=== PATIENT | female | born 1950 | race Caucasian/White ===

== ENCOUNTER 2017-01-29 10:33 | Outpatient (CLI) | payer OTHER | END 2017-01-29 10:34 | disposition home or self-care (01) | DX: Z01.818 Encounter for other preprocedural examination (principal); Z01.812 Encounter for preprocedural laboratory examination; D64.9 Anemia, unspecified; R73.9 Hyperglycemia, unspecified ==

== ENCOUNTER 2017-02-09 13:37 | Outpatient (CLI) | payer MEDICARE, OTHER | END 2017-02-09 13:38 | disposition home or self-care (01) | DX: Z01.812 Encounter for preprocedural laboratory examination (principal); N39.0 Urinary tract infection, site not specified; R73.09 Other abnormal glucose ==

== ENCOUNTER 2017-05-17 16:18 | Outpatient (CLI) | payer MEDICARE, OTHER | END 2017-05-17 16:19 | disposition critical access hospital (66) | LOC: EMS 16:18 | PROVIDERS: ATTEND Surgery | DX: M25.552 Pain in left hip (principal); X50.0XXA Overexertion from strenuous movement or load, initial encounter; Y93.K1 Activity, walking an animal | CPT/HCPCS: A0425; A0427 ==

== ENCOUNTER 2017-05-17 16:35 | Day surgery (SDC) | payer MEDICARE, OTHER ==
[2017-05-17] MEDS ORDERED: HYDROmorphone 1 MG/ML SYRINGE ONE ×3 (16:49→18:01)
[2017-05-17] MEDS ORDERED: HYDROmorphone 1 MG/ML SYRINGE IVP STA ×3 (16:49→17:59)
--- NOTE | 2017-05-17 16:50 | ED Physician Documentation ---
PD HPI LOWER EXT INJURY - Stated complaint Stated Complaint: DISLOCATED HIP - Chief complaint Chief Complaint: Ext Problem - History obtained from History obtained from: Patient, Family - History of Present Illness PD HPI LOW EXT INJURY LOCATION: Right, Hip Type of injury: Twist Where injury occurred: Other (beach) Timing - onset: How many hours ago (1) Timing - duration: Hours (1) Timing - details: Abrupt onset Pain level max: 10 Pain level now: 8 Improved by: Rest, Ice, Immobilization Worsened by: Moving, Palpating Associated symptoms: No: Weakness, Numbness, Tingling, Swelling, Discolored Contributing factors: Prior ortho surgery (R hip THR). No: Anticoagulated Similar symptoms before: Diagnosis (R hip dislocation) - Additional information Additional information: last PO intake was at noon today. 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 : None HEENT: None Psych: Depression, Post traumatic stress disorder Musculoskeletal: Osteoarthritis Derm: None - Past Surgical History Past Surgical History: Yes General: Appendectomy, Colonoscopy, EGD Ortho: Hip replacement /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: Hysterectomy, Oophrectomy, Breast reduction - Present Medications Home Medications: Ambulatory Orders Medication Instructions Recorded Confirmed Amitriptyline [Elavil] 25 mg PO QPM 09/16/13 05/17/17 Atorvastatin Calcium [Lipitor] 60 mg PO QPM 09/16/13 05/17/17 Celecoxib [CeleBREX] 200 mg PO DAILY 09/16/13 05/17/17 Levothyroxine [Synthroid] 75 mcg PO QDAC 09/16/13 05/17/17 Metformin HCl [Glumetza] 500 mg PO BID 09/16/13 05/17/17 Omeprazole 20 mg PO BID 09/16/13 05/17/17 Tizanidine HCl 4 mg PO HS 09/16/13 05/17/17 Aspirin [Aspir 81] 81 mg PO DAILY 12/13/14 05/17/17 Ferrous Sulfate 650 mg PO DAILY 12/13/14 05/17/17 Losartan Potassium 25 mg PO DAILY 12/13/14 05/17/17 LORazepam [Ativan] 1 mg PO DAILY 05/27/15 05/17/17 - Allergies Allergies/Adverse Reactions: Allergies Allergy/AdvReac Type Severity Reaction Status Date / Time lisinopril AdvReac Respiratory Verified 05/17/17 16:46 - Social History Does the pt smoke?: No Smoking Status: Never smoker Does the pt drink ETOH?: No Does the pt have substance abuse?: Yes - Immunizations Immunizations are current?: Yes - POLST Patient has POLST: No PD ED PE NORMAL - Vitals Vital signs reviewed: Yes - General General: Alert and oriented X 3, No acute distress - HEENT HEENT: Moist mucous membranes, Other (anisocoria) - Neck Neck: Supple, no meningeal sign - Cardiac Cardiac: RRR, Strong equal pulses - Respiratory Respiratory: No respiratory distress, Clear bilaterally - Abdomen Abdomen: Soft, Non tender - Derm Derm: Warm and dry - Extremities Extremities: Other (TTP R hip. Unable to range the hip. NVI.) - Neuro Neuro: Alert and oriented X 3 - Psych Psych: Normal mood, Normal affect Results - Vitals Vitals: Vital Signs - 24 hr 05/17/17 05/17/17 05/17/17 16:36 17:29 17:39 Temperature 37 C Heart Rate 91 78 92 Respiratory 16 22 22 Rate Blood Pressure 155/96 H 192/93 H 181/90 H Blood Pressure [Brachial artery] O2 Saturation 100 99 100 05/17/17 05/17/17 05/17/17 17:47 17:52 17:58 Temperature Heart Rate 64 68 74 Respiratory 16 14 16 Rate Blood Pressure 186/78 H 166/88 H 174/97 H Blood Pressure [Brachial artery] O2 Saturation 98 100 100 05/17/17 05/17/17 05/17/17 18:09 18:35 18:56 Temperature Heart Rate 92 96 87 Respiratory 20 20 24 Rate Blood Pressure 174/88 H 180/87 H 162/85 H Blood Pressure [Brachial artery] O2 Saturation 100 100 100 05/17/17 05/17/17 05/17/17 19:12 20:03 20:10 Temperature Heart Rate 103 H Respiratory 24 Rate Blood Pressure 141/108 H Blood Pressure [Brachial artery] O2 Saturation 100 100 100 07/23/17 07/23/17 07/23/17 20:15 20:20 20:35 Temperature Heart Rate Respiratory Rate Blood Pressure Blood Pressure [Brachial artery] O2 Saturation 100 96 98 05/17/17 05/17/17 05/17/17 20:50 21:05 21:15 Temperature Heart Rate Respiratory Rate Blood Pressure Blood Pressure [Brachial artery] O2 Saturation 98 100 98 05/17/17 05/17/17 05/17/17 21:30 21:45 22:00 Temperature 36.8 C Heart Rate 114 H 111 H 111 H Respiratory 14 12 12 Rate Blood Pressure Blood Pressure 116/62 139/70 H 132/60 H [Brachial artery] O2 Saturation 97 91 L 92 05/17/17 22:31 Temperature 95 C H Heart Rate 107 H Respiratory 12 Rate Blood Pressure Blood Pressure 131/66 H [Brachial artery] O2 Saturation 96 Oxygen O2 Source [With Activity] Room air O2 Source [Without Activity] Room air O2 Source Nasal cannula Oxygen Flow Rate 2 - Rads (name of study) R hip xray Radiology: Prelim report reviewed, EMP read contemporaneously, See rad report ( Superiorly dislocated right total hip arthroplasty. Right proximal femur greater trochanter fracture fragment again noted. There is a new metal structure , suspect postsurgical at the right greater trochanter fracture fragment. ) R hip xray 2 Radiology: Prelim report reviewed, EMP read contemporaneously, See rad report ( Right total hip arthroplasty superior dislocation, unchanged. Right proximal femur greater trochanter fracture fragment, unchanged. No acute fractures are seen. 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 This is unable to be reduced in the emergency department. Therefore I consulted Dr. Amezquita, orthopedics, who will take the patient to the operating room for reduction. This is the second time that this hip has been dislocated and unable to be relocated in the ED, may need OR reduction in the future. This document was made in part using voice recognition software. While efforts are made to proofread this document, sound alike and grammatical errors may occur. Departure - Departure Disposition: ED Transfer to [facility] Clinical Impression: Hip dislocation, right Qualifiers: Encounter type: initial encounter Qualified Code(s): S73.004A - Unspecified dislocation of right hip, initial encounter Condition: Good Discharge Date/Time: 05/17/17 19:24
[2017-05-17] MEDS ORDERED: PROPOFOL 200 MG/20 ML VIAL IVP ONE ×3 (17:27→20:30)
--- NOTE | 2017-05-17 17:52 | XRAY Preliminary Report ---
Exam: XR Hip w/Pelvis 2-3V RT IMPRESSION: Superiorly dislocated right total hip arthroplasty. Right proximal femur greater trochant er fracture fragment again noted. There is a new metal structure, suspect postsurgical at the right g reater trochanter fracture fragment. [facility] SITE ID: [id number]
--- NOTE | 2017-05-17 17:55 | XRAY Report ---
EXAM: RIGHT HIP AND PELVIS RADIOGRAPHY EXAM DATE: 05/17/2017 04:50 PM. HISTORY: Fall, right hip pain. COMPARISONS: Pelvis 05/27/2015. TECHNIQUE: 1 view of the pelvis and 1 view of the hip. FINDINGS: Superiorly dislocated right total hip arthroplasty. Right proximal femur greater trochanter fracture fragment again noted. There is a new metal structure, suspect postsurgical at the right gre ater trochanter fracture fragment. Left total hip arthroplasty again noted. No left hip dislocation. IMPRESSION: Superiorly dislocated right total hip arthroplasty. Right proximal femur greater trochant er fracture fragment again noted. There is a new metal structure, suspect postsurgical at the right g reater trochanter fracture fragment. [facility] Referring Provider Line: [phone] SITE ID: [id number]
[2017-05-17] MEDS ORDERED: diazePAM INJ 5 MG/ML SYRINGE IVP STA (18:14)
[2017-05-17] MEDS ORDERED: PROPOFOL 200 MG/20 ML VIAL IVP STA (18:14)
[2017-05-17] MEDS ORDERED: diazePAM INJ 5 MG/ML SYRINGE ONE (18:16)
[2017-05-17] MEDS ORDERED: LORazepam 2 MG/ML SYRINGE IVP STA (18:52)
[2017-05-17] MEDS ORDERED: LORazepam 2 MG/ML SYRINGE ONE (18:52)
--- NOTE | 2017-05-17 19:05 | XRAY Preliminary Report ---
Exam: XR Hip w/Pelvis 1V RT IMPRESSION: Right total hip arthroplasty superior dislocation, unchanged. Right proximal femur greate r trochanter fracture fragment, unchanged. No acute fractures are seen. [facility] SITE ID: [id number]
--- NOTE | 2017-05-17 19:07 | XRAY Report ---
EXAM: RIGHT HIP AND PELVIS RADIOGRAPHY EXAM DATE: 05/17/2017 06:40 PM. HISTORY: Post reduction. COMPARISONS: Right hip 05/17/2017. TECHNIQUE: 1 view . FINDINGS: Bones: Right proximal femur greater trochanter fracture fragment is again noted. No new acute fractur es are seen. Joints: The right total hip arthroplasty continues to be superiorly dislocated. The left total hip ar throplasty appears unchanged. IMPRESSION: Right total hip arthroplasty superior dislocation, unchanged. Right proximal femur greate r trochanter fracture fragment, unchanged. No acute fractures are seen. G[facility] Referring Provider Line: [phone] SITE ID: [id number]
[2017-05-17] MEDS ORDERED: SODIUM CHLORIDE 0.9% 1,000 ML IV ONE ×2 (19:20)
--- NOTE | 2017-05-17 20:00 | XRAY Preliminary Report ---
Exam: XR Hip w/Pelvis 1V RT Impression: Satisfactory postreduction right hip prosthesis alignment. [facility] SITE ID: [id number]
--- NOTE | 2017-05-17 20:02 | XRAY Report ---
EXAM: RIGHT HIP RADIOGRAPHY EXAM DATE: 05/17/2017 07:49 PM. HISTORY: RIGHT HIP DISLOCATION. COMPARISONS: None. TECHNIQUE: 1 view of the pelvis. FINDINGS: Satisfactory postreduction alignment of right hip prosthesis. Chronic displaced greater trochanter fr acture fragment noted. Impression: Satisfactory postreduction right hip prosthesis alignment. [facility] Referring Provider Line: [phone] SITE ID: [id number]
[2017-05-17] MEDS ORDERED: LACTATED RINGERS 1,000 ML IV ONE (20:25)
[2017-05-17] MEDS ORDERED: MIDAZOLAM 2 MG/2 ML VIAL IVP ONE (20:30)
[2017-05-17] MEDS ORDERED: ROCURONIUM 50 MG/5 ML VIAL IVP ONE (20:30)
[2017-05-17] MEDS ORDERED: ONDANSETRON 4 MG/2 ML VIAL IVP ONE (20:30)
[2017-05-17] MEDS ORDERED: LIDOCAINE-MPF 2% 5 ML VIAL IM ONE (20:30)
[2017-05-17] MEDS ORDERED: fentaNYL 100 MCG/2 ML VIAL IVP ONE (20:30)
[2017-05-17] MEDS ORDERED: SUCCINYLCHOLINE 200 MG/10 ML VIAL IVP ONE (20:30)
[2017-05-17] MEDS ORDERED: NALOXONE 0.4 MG/ML VIAL IVP ONE (20:30)
--- NOTE | 2017-05-17 22:04 | OPERATIVE REPORT ---
DATE OF SURGERY: 05/17/2017 00:00:00 PREOPERATIVE DIAGNOSIS: Dislocated right total hip arthroplasty. POSTOPERATIVE DIAGNOSIS: Dislocated right total hip arthroplasty. NAME OF PROCEDURE: Closed reduction under anesthesia of right dislocated total arthroplasty. SURGEON: Shelli Amezquita MD. ANESTHESIA: General by Cassandra . INDICATIONS FOR SURGERY: The patient is a 67-year-old female with recurrent instability of a previous ly revised right total hip arthroplasty. The patient has had 4 or 5 episodes of subluxation and then finally today upon twisting had a dislocation of her right hip. She was seen in the emergency room af ter a failed closed reduction obtained under conscious sedation and recommendation was that she under go a closed reduction attempt under general anesthesia. FINDINGS AT SURGERY: The patient's hip was significantly shortened and externally rotated. Under anes thesia with longitudinal traction at 45 degrees of flexion and neutral rotation the patient did slide back into a located position without any dramatic clunk. It was more of a soft reduction. The patien t was then examined. Her hip was taken to 90 degrees of flexion and neutral rotation and the hip hakeem ined in place but she had exceedingly great range of motion at that position. She could be internally rotated to 90 degrees and externally rotated to 100 degrees without dislocating. When her limb was t hen dropped down to 0 degrees of flexion her foot was not able to be rolled in and out to this degree of rotation. Her limb length was half an inch longer than her other limb and was not constrained sig nificantly in abduction and there was no sense of instability other than under anesthesia. This is th e point where x-ray was taken and her hip was found to be concentrically reduced and the patient was awakened and taken to the recovery room in stable condition. The patient tolerated the procedure well and there were no complications. The only interesting aspect is that she had a very unusual hip exam after a very soft uneventful reduction. JOB #: [id number] EXT JOB #:[id number]
[2017-05-17 22:32] VITALS: BP 131/66
== END 2017-05-18 08:00 | disposition home or self-care (01) ==
LOC: SUPCPDRO 16:35 → ED 16:35 → MS 18:55 → SDS 18:55 → MS 20:00 → SDS 05-18 08:00
PROVIDERS: ATTEND Orthopaedic Surgery
PROC: 0SWRXJZ Revision of Synthetic Substitute in Right Hip Joint, Femoral Surface, External Approach (ICD-10-PCS; principal; 2017-05-17 19:07)
DX: T84.020A Dislocation of internal right hip prosthesis, initial encounter (principal); Y83.1 Surgical operation with implant of artificial internal device as the cause of abnormal reaction of the patient, or of later complication, without mention of misadventure at the time of the procedure; W50.2XXA Accidental twist by another person, initial encounter; Y92.832 Beach as the place of occurrence of the external cause; E11.9 Type 2 diabetes mellitus without complications; E03.9 Hypothyroidism, unspecified; Z79.82 Long term (current) use of aspirin; M19.90 Unspecified osteoarthritis, unspecified site; Z79.1 Long term (current) use of non-steroidal anti-inflammatories (NSAID); Z90.710 Acquired absence of both cervix and uterus; Z90.721 Acquired absence of ovaries, unilateral
CPT/HCPCS: 27266; 73501; 73502; 96374; 96375; 96376; 99284; J1170; J2060; J7120; 27265; 99152

== ENCOUNTER 2017-07-05 13:36 | Day surgery (SDC) | payer MEDICARE, OTHER ==
[2017-07-05] MEDS ORDERED: SODIUM CHLORIDE 0.9% 1,000 ML IV ONE (13:40)
[2017-07-05] MEDS ORDERED: HYDROmorphone 1 MG/ML SYRINGE IVP STA ×4 (13:40→17:18)
[2017-07-05] MEDS ORDERED: diazePAM INJ 5 MG/ML SYRINGE IVP STA (13:40)
--- NOTE | 2017-07-05 13:43 | ED Physician Documentation ---
PD HPI LOWER EXT INJURY - Stated complaint Stated Complaint: HIP PX - Chief complaint Chief Complaint: Ext Problem - History obtained from History obtained from: Patient - History of Present Illness PD HPI LOW EXT INJURY LOCATION: Other (She is status post right total hip replacement with a revision, she has had dislocations before and lifted up her leg to put it on the floor board of her car to take a picture just prior to arrival and it dislocated again and has severe pain in the right hip and is unable to range it. 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 Systems Ten Systems: 10 systems reviewed and negative Constitutional: reports: Reviewed and negative Ears: reports: Reviewed and negative Throat: reports: Reviewed and negative Cardiac: reports: Reviewed and negative PD PAST MEDICAL HISTORY - Past Medical History Cardiovascular: Hypertension, High cholesterol, Murmur Respiratory: None Neuro: None Endocrine/Autoimmune: Type 2 diabetes, HyPOthyroidism GI: None, GERD, Other 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 : None HEENT: None Psych: Depression, Post traumatic stress disorder Musculoskeletal: Osteoarthritis Derm: None - Past Surgical History Past Surgical History: Yes General: Appendectomy, Colonoscopy, EGD Ortho: Hip replacement /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: Hysterectomy, Oophrectomy, Breast reduction - Present Medications Home Medications: Ambulatory Orders Medication Instructions Recorded Confirmed Amitriptyline [Elavil] 25 mg PO QPM 09/16/13 05/17/17 Atorvastatin Calcium [Lipitor] 60 mg PO QPM 09/16/13 05/17/17 Celecoxib [CeleBREX] 200 mg PO DAILY 09/16/13 05/17/17 Levothyroxine [Synthroid] 75 mcg PO QDAC 09/16/13 05/17/17 Metformin HCl [Glumetza] 500 mg PO BID 09/16/13 05/17/17 Omeprazole 20 mg PO BID 09/16/13 05/17/17 Tizanidine HCl 4 mg PO HS 09/16/13 05/17/17 Aspirin [Aspir 81] 81 mg PO DAILY 12/13/14 05/17/17 Ferrous Sulfate 650 mg PO DAILY 12/13/14 05/17/17 Losartan Potassium 25 mg PO DAILY 12/13/14 05/17/17 LORazepam [Ativan] 1 mg PO DAILY 05/27/15 05/17/17 - Allergies Allergies/Adverse Reactions: Allergies Allergy/AdvReac Type Severity Reaction Status Date / Time lisinopril AdvReac Respiratory Verified 05/17/17 16:46 - Social History Does the pt smoke?: No Smoking Status: Never smoker Does the pt drink ETOH?: No Does the pt have substance abuse?: Yes - Family History Family history: reports: Non contributory - Immunizations Immunizations are current?: Yes - POLST Patient has POLST: No PD ED PE NORMAL - Vitals Vital signs reviewed: Yes - General General: Alert and oriented X 3, Other (In pain) - HEENT HEENT: PERRL, EOMI - Neck Neck: Supple, no meningeal sign, No bony TTP - Cardiac Cardiac: RRR, No murmur - Respiratory Respiratory: No respiratory distress, Clear bilaterally - Abdomen Abdomen: Normal bowel sounds, Soft, Non tender - Back Back: No CVA TTP, No spinal TTP - Derm Derm: Normal color, Warm and dry - Extremities Extremities: Other (Right hip is held in slight flexion and is shortened and severely in pain with inability to move it at all.) - Neuro Neuro: Alert and oriented X 3, Normal speech - Psych Psych: Normal mood, Normal affect Results - Vitals Vitals: Vital Signs - 24 hr 07/05/17 07/05/17 07/05/17 13:40 14:32 15:21 Temperature 36.6 C Heart Rate 103 H 88 88 Respiratory 16 14 20 Rate Blood Pressure 168/88 H 185/77 H O2 Saturation 99 100 96 Oxygen O2 Source [With Activity] Room air O2 Source [Without Activity] Room air O2 Source Nasal cannula Oxygen Flow Rate 2 - Rads (name of study) R hip Radiology: EMP read contemporaneously (anterior superior dislocation of prosthetic hip) Procedures - Reduction Body part reduced: Right, Hip, prosthetic Hip reduction technique: Allis - flex/pull/rotate, Fulcrum, [place] - prone flex Reduction aftercare: Unable to reduce. 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 She had not been n.p.o. very long when she got here so given her history of inability to reduce it in the ER I did talk with Dr. Amezquita but he requested a trial in the emergency department and she was administered divided doses of propofol and attempts at reduction by me were unsuccessful and Dr. Amezquita was called back and he will be in to see her. Departure - Departure Disposition: ED Transfer to [facility] Clinical Impression: Hip dislocation, right Qualifiers: Encounter type: initial encounter Qualified Code(s): S73.004A - Unspecified dislocation of right hip, initial encounter Condition: Stable
[2017-07-05] MEDS ORDERED: HYDROmorphone 1 MG/ML SYRINGE ONE ×4 (13:49→17:25)
[2017-07-05] MEDS ORDERED: diazePAM INJ 5 MG/ML SYRINGE ONE (13:49)
[2017-07-05] MEDS ORDERED: HYDROmorphone 1 MG/ML SYRINGE IM STA (13:59)
[2017-07-05] MEDS ORDERED: KETAMINE 500 MG/10 ML VIAL IVP STA ×2 (14:24→14:54)
[2017-07-05] MEDS ORDERED: KETAMINE 500 MG/10 ML VIAL ONE ×3 (14:30→17:38)
--- NOTE | 2017-07-05 15:34 | XRAY Preliminary Report ---
Exam: XR Hip w/Pelvis 2-3V RT IMPRESSION: Status post right total hip replacement with anterosuperior dislocation of the right femo ral prosthesis. [facility] SITE ID: [id number]
--- NOTE | 2017-07-05 15:37 | XRAY Report ---
EXAM: RIGHT HIP AND PELVIS RADIOGRAPHY EXAM DATE: 07/05/2017 02:27 PM. HISTORY: Hip dislocation. COMPARISONS: Right hip 05/17/2017. TECHNIQUE: 1 view of the pelvis and 1 view of the hip. FINDINGS: Bones: Normal. No fracture or bone lesion. Joints: Status post bilateral total hip replacements with anterosuperior dislocation of the right fem oral prosthesis. Soft Tissues: Normal. No soft tissue swelling. IMPRESSION: Status post right total hip replacement with anterosuperior dislocation of the right femo ral prosthesis. [facility] Referring Provider Line: [phone] SITE ID: [id number]
[2017-07-05] MEDS ORDERED: PROPOFOL 200 MG/20 ML VIAL IVP ONE ×3 (15:38→18:00)
[2017-07-05] MEDS ORDERED: PROPOFOL 200 MG/20 ML VIAL IVP STA (15:43)
[2017-07-05] MEDS ORDERED: KETAMINE 500 MG/10 ML VIAL IVP ONE (17:34)
[2017-07-05] MEDS ORDERED: LACTATED RINGERS 1,000 ML IV ONE (17:42)
[2017-07-05] MEDS ORDERED: DEXAMETHASONE 4 MG/ML VIAL IVP ONE (18:00)
[2017-07-05] MEDS ORDERED: MIDAZOLAM 2 MG/2 ML VIAL IVP ONE (18:00)
[2017-07-05] MEDS ORDERED: ONDANSETRON 4 MG/2 ML VIAL IVP ONE (18:00)
[2017-07-05] MEDS ORDERED: fentaNYL 100 MCG/2 ML VIAL IVP ONE (18:00)
[2017-07-05] MEDS ORDERED: LIDOCAINE-PF 2% 10 ML AMP SUBQ ONE (18:00)
[2017-07-05] MEDS ORDERED: KETOROLAC 30 MG/ML VIAL IVP ONE (18:00)
[2017-07-05 19:00] VITALS: BP 160/71
--- NOTE | 2017-07-05 19:37 | OPERATIVE REPORT ---
DATE OF SURGERY: 07/05/2017 00:00:00 PREOPERATIVE DIAGNOSIS: Dislocated right total hip arthroplasty, recurrent. POSTOPERATIVE DIAGNOSIS: Dislocated right total hip arthroplasty, recurrent. NAME OF PROCEDURE: Closed reduction of right total hip arthroplasty. SURGEON: Shelli Amezquita MD. ANESTHESIA: General by Matthew Corcoran CRNA. INDICATIONS FOR SURGERY: The patient is a 67-year-old female with a total hip arthroplasty on the [facility] that has been once revised for dislocation and has subsequently re-dislocated now 3 times, requiri ng closed reduction. Her surgeon, Dr. Brown, has debated further treatment, but no measures have been taken yet. The patient has been unable to wear a hip abduction orthosis to keep her located as it sandoval s not fit well and has been uncomfortable. DESCRIPTION OF OPERATIVE PROCEDURE: The patient was taken to the operating room, was given a general anesthetic and then was fully paralyzed and at which point, counter pressure was placed directly down on the right ilium at the iliac crest to allow flexion and direct in-line traction on the hip. The h ip reduced fairly promptly. It was not a dramatic relocation event. It slid into place. Limb lengths were restored and the stability remained fairly good as x-ray was taken confirming concentric reducti on. The postoperative plan is for the patient to be awakened and recovered and to transition to home on oral anti-inflammatories and Tylenol and to follow up with her physician for further management pl ans. JOB #: [id number] EXT JOB #:[id number]
--- NOTE | 2017-07-05 21:10 | XRAY Preliminary Report ---
Exam: XR Pelvis 1 View IMPRESSION: Satisfactory postreduction right hip prosthesis alignment. [facility] SITE ID: [id number]
--- NOTE | 2017-07-05 21:12 | XRAY Report ---
EXAM: PELVIS RADIOGRAPHY EXAM DATE: 07/05/2017 06:31 PM. CLINICAL HISTORY: RIGHT HIP DISLOCATION. COMPARISON: 07/05/2017, 05/17/2017. TECHNIQUE: 1 view. FINDINGS: Bones: Chronic mildly displaced right greater trochanteric fracture fragment. Joints: Satisfactory postreduction right hip prosthesis alignment. Soft Tissues: Normal. No soft tissue swelling. IMPRESSION: Satisfactory postreduction right hip prosthesis alignment. [facility] Referring Provider Line: [phone] SITE ID: [id number]
== END 2017-07-05 16:30 | disposition home or self-care (01) ==
LOC: ED 13:36 → SDS 16:29
PROVIDERS: ATTEND Orthopaedic Surgery
PROC: 0SW9XJZ Revision of Synthetic Substitute in Right Hip Joint, External Approach (ICD-10-PCS; principal; 2017-07-05 18:00)
DX: T84.020A Dislocation of internal right hip prosthesis, initial encounter (principal); Y83.1 Surgical operation with implant of artificial internal device as the cause of abnormal reaction of the patient, or of later complication, without mention of misadventure at the time of the procedure; I10 Essential (primary) hypertension; E11.9 Type 2 diabetes mellitus without complications; E78.00 Pure hypercholesterolemia, unspecified; E03.9 Hypothyroidism, unspecified; K21.9 Gastro-esophageal reflux disease without esophagitis; F32.9 Major depressive disorder, single episode, unspecified; F43.10 Post-traumatic stress disorder, unspecified; Z79.84 Long term (current) use of oral hypoglycemic drugs; Z79.82 Long term (current) use of aspirin
CPT/HCPCS: 27266; 72170; 73502; 94770; 96372; 96374; 96375; 96376; 99152; 99284; J1170; J7120; 27265

== ENCOUNTER 2017-07-05 15:49 | Outpatient (CLI) | payer MEDICARE, OTHER | END 2017-07-05 15:50 | disposition critical access hospital (66) | LOC: EMS 15:49 | PROVIDERS: ATTEND Surgery | DX: M25.551 Pain in right hip (principal) | CPT/HCPCS: A0425; A0429 ==

== ENCOUNTER 2017-08-17 00:22 | Outpatient (CLI) | payer MEDICARE, OTHER | END 2017-08-17 00:23 | disposition critical access hospital (66) | LOC: EMS 00:22 | PROVIDERS: ATTEND Surgery | DX: M25.551 Pain in right hip (principal) | CPT/HCPCS: A0425; A0429 ==

== ENCOUNTER 2017-12-04 08:24 | Outpatient (CLI) | payer MEDICARE, OTHER | END 2017-12-04 08:25 | disposition critical access hospital (66) | LOC: EMS 08:24 | PROVIDERS: ATTEND Surgery | DX: I46.9 Cardiac arrest, cause unspecified (principal) | CPT/HCPCS: A0425; A0433 ==

== ENCOUNTER 2017-12-04 08:25 | Emergency (ER) | payer MEDICARE, OTHER ==
--- NOTE | 2017-12-04 08:34 | ED Physician Documentation ---
PD HPI CPR - Stated complaint Stated Complaint: CPR - Chief complaint Chief Complaint: Cardiac - History obtained from History obtained from: Family (Spouse), EMS - History of Present Illness Contributing factors: Diabetes, Other (Recent hip replacement surgery) Witnessed: Arrest witnessed Bystander CPR: Bystander CPR EMS findings: Unresponsive, Pulseless Treatment INGOT HEADER: CPR, Epi, IO - Additional information Additional information: The patient is a 67-year-old female who is 3 days status post right total hip replacement, whose found her this morning lying on her bed with agonal respirations. He called 911 and began CPR. Medics arrived to find the patient unresponsive and pulseless. They continued CPR and placed then IO catheter, and intubated the patient. Frothy blood-tinged secretions exuded from the endotracheal tube. The patient has been undergoing CPR for approximately 40 minutes by the time of her arrival in the emergency department, and she has received 3 rounds of epinephrine. 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 : None HEENT: None Psych: Depression, Post traumatic stress disorder Musculoskeletal: Osteoarthritis Derm: None - Past Surgical History Past Surgical History: Yes General: Appendectomy, Colonoscopy, EGD Ortho: Hip replacement (3 days S/P Right THR) /GASOLINE PUMP MECHANIC: Hysterectomy, Oophrectomy, Breast reduction - Present Medications Home Medications: Ambulatory Orders Medication Instructions Recorded Confirmed Amitriptyline [Elavil] 25 mg PO QPM 09/16/13 05/17/17 Atorvastatin Calcium [Lipitor] 60 mg PO QPM 09/16/13 05/17/17 Celecoxib [CeleBREX] 200 mg PO DAILY 09/16/13 05/17/17 Levothyroxine [Synthroid] 75 mcg PO QDAC 09/16/13 05/17/17 Metformin HCl [Glumetza] 500 mg PO BID 09/16/13 05/17/17 Omeprazole 20 mg PO BID 09/16/13 05/17/17 Tizanidine HCl 4 mg PO HS 09/16/13 05/17/17 Aspirin [Aspir 81] 81 mg PO DAILY 12/13/14 05/17/17 Ferrous Sulfate 650 mg PO DAILY 12/13/14 05/17/17 Losartan Potassium 25 mg PO DAILY 12/13/14 05/17/17 LORazepam [Ativan] 1 mg PO DAILY 05/27/15 05/17/17 - Allergies Allergies/Adverse Reactions: Allergies Allergy/AdvReac Type Severity Reaction Status Date / Time lisinopril AdvReac Respiratory Verified 08/17/17 00:33 - Social History Does the pt smoke?: No Smoking Status: Never smoker Does the pt drink ETOH?: No Does the pt have substance abuse?: No - Immunizations Immunizations are current?: Yes - POLST Patient has POLST: No PD ED PE NORMAL - General General: Other (Intubated with CPR in progress.) - HEENT HEENT: Atraumatic, Other (Fixed and dilated pupils.) - Cardiac Cardiac: Other (Pulseless, with no cardiac activity seen on bedside ultrasound.) - Respiratory Respiratory: Other (Breath sounds bilaterally with [id number] tube ventilations. Blood-tinged frothy secretions from ET tube.) - Abdomen Abdomen: Soft - Derm Derm: Other (Ashen appearing, cool to touch.) - Extremities Extremities: Other (Surgical incision site intact, right hip.) - Neuro Neuro: Other (Unresponsive) Eye Opening: None Motor: None Verbal: None GCS Score: 3 Results - Vitals Vitals: Oxygen O2 Source [With Activity] Room air O2 Source [Without Activity] Room air O2 Source Room air Oxygen Flow Rate 15 PD MEDICAL DECISION MAKING - ED course Complexity details: d/w family, other (d/w political director.) ED course: This patient, who is 3 days status post hip replacement surgery, was found unresponsive with agonal respirations this morning more than 40 minutes prior to arrival. She has had CPR in progress during this entire time, and has remained pulseless. Assessment with bedside ultrasound revealed no cardiac activity, and the patient was pronounced at 8:32 AM. The most likely explanation for her sudden is massive pulmonary embolus. I discussed her expiration with her , who was present in the emergency department. The patient's body was released to the home. Departure - Departure Disposition: 20 Clinical Impression: Sudden , cause unknown Discharge Date/Time: 12/04/17 10:00
== END 2017-12-04 10:00 | disposition expired ==
LOC: ED 08:25
DX: Z98.890 Other specified postprocedural states; Z96.641 Presence of right artificial hip joint; I10 Essential (primary) hypertension; E11.9 Type 2 diabetes mellitus without complications; Z79.84 Long term (current) use of oral hypoglycemic drugs; E78.00 Pure hypercholesterolemia, unspecified; E03.9 Hypothyroidism, unspecified; K21.9 Gastro-esophageal reflux disease without esophagitis; M19.90 Unspecified osteoarthritis, unspecified site; Z79.82 Long term (current) use of aspirin
CPT/HCPCS: 92950; 99284; 99285